=== PATIENT | male | born 1950 | race Caucasian/White ===

== ENCOUNTER 2017-02-05 13:22 | Inpatient (IN) | payer MEDICARE, BC ==
[~2017-02-05] VITALS: Ht 177.8 cm; Wt 84.4 kg
[~2017-02-05 13:22] MED LIST: ASPIRIN EC81 MG PO
[2017-02-05 15:01] LABS: HEMOGLOBIN 17.6 gm/dl (14.0-17.5); RED BLOOD COUNT 5.14 M/UL (4.20-5.50)
[2017-02-05 15:38] LABS: BUN/CREATININE RATIO 18 (0-10)
[2017-02-05] MEDS ORDERED: SYMBICORT 16010.2 GM INH (23:55)
[2017-02-05] MEDS ORDERED: PROAIR HFA8.5 GM INH (23:55)
[2017-02-05] MEDS ORDERED: COMBIVENT0.074 GM/I INH (23:57)
[2017-02-05] MEDS ORDERED: SPIRIVA HANDIH18 MCG INH (23:57)
[2017-02-05] MEDS ORDERED: COUMADIN3 MG PO (23:58)
[2017-02-05] MEDS ORDERED: BAYER CHEWABLE81 MG PO (23:58)
[2017-02-05] MEDS ORDERED: COUMADIN2 MG PO (23:59)
[2017-02-06] MEDS ORDERED: TOPROL XL50 MG PO
[2017-02-06] MEDS ORDERED: JANUVIA100 MG PO (00:01)
[2017-02-06] MEDS ORDERED: NORVASC 5 MG TAB5 MG PO (00:01)
[2017-02-06] MEDS ORDERED: PRAVACHOL80 MG PO (00:02)
[2017-02-06] MEDS ORDERED: SINEQUAN CAP 5050 MG PO (00:02)
[2017-02-06 03:36] LABS: HEMOGLOBIN 15.3 gm/dl (14.0-17.5); RED BLOOD COUNT 4.52 M/UL (4.20-5.50); WHITE BLOOD COUNT 10.2 K/UL (4.5-11.0)
[2017-02-06 04:02] LABS: BUN/CREATININE RATIO 23 (0-10)
[2017-02-08 04:55] LABS: HEMOGLOBIN 14.4 gm/dl (14.0-17.5); RED BLOOD COUNT 4.24 M/UL (4.20-5.50); WHITE BLOOD COUNT 11.1 K/UL (4.5-11.0)
[2017-02-08 05:24] LABS: BUN/CREATININE RATIO 27 (0-10)
[2017-02-09] MEDS ORDERED: IPRAT-ALBUT 0.5-3 ML INH (10:07)
[2017-02-09] MEDS ORDERED: TYLENOL 325MG325 MG PO (10:07)
[2017-02-09] MEDS ORDERED: BACTROBAN OINT22 GM TOP (10:16)
== END 2017-02-09 17:31 | disposition home or self-care (01) | DRG 189 ==
LOC: ER1 13:22 → ZEROF 17:40 → MED SURG 4 17:40
PROVIDERS: Family Medicine; ADMIT Emergency Medicine
DX: J96.01 Acute respiratory failure with hypoxia (principal); J44.1 Chronic obstructive pulmonary disease with (acute) exacerbation; J44.0 Chronic obstructive pulmonary disease with (acute) lower respiratory infection; J20.9 Acute bronchitis, unspecified; I25.10 Atherosclerotic heart disease of native coronary artery without angina pectoris; Z95.5 Presence of coronary angioplasty implant and graft; Z95.2 Presence of prosthetic heart valve; G47.33 Obstructive sleep apnea (adult) (pediatric); D72.829 Elevated white blood cell count, unspecified; I73.9 Peripheral vascular disease, unspecified; E11.9 Type 2 diabetes mellitus without complications; E78.5 Hyperlipidemia, unspecified; I10 Essential (primary) hypertension; Z98.890 Other specified postprocedural states; Z79.899 Other long term (current) drug therapy; Z79.82 Long term (current) use of aspirin; Z79.01 Long term (current) use of anticoagulants; Z88.0 Allergy status to penicillin; Z88.8 Allergy status to other drugs, medicaments and biological substances; Z87.891 Personal history of nicotine dependence; Z82.3 Family history of stroke; Z84.1 Family history of disorders of kidney and ureter; Z82.49 Family history of ischemic heart disease and other diseases of the circulatory system; Z82.5 Family history of asthma and other chronic lower respiratory diseases; D75.1 Secondary polycythemia
CPT/HCPCS: ECHO; 36415; 36600; 71010; 80048; 80053; 82550; 82553; 82803; 82962; 83874; 83880; 84484; 85025; 85027; 85379; 85610; 85730; 87070; 87077; 87186; 87205; 93005; 93306; 94640; 94660; 94664; 96374; 99285; J1650; J2920; J2930

== ENCOUNTER 2017-02-14 14:30 | Inpatient (IN) | payer MEDICARE, BC ==
[~2017-02-14] VITALS: Ht 177.8 cm; Wt 83.9 kg
[~2017-02-14 14:30] MED LIST changes: +BACTROBAN OINT22 GM TOP; +BAYER CHEWABLE81 MG PO; +COMBIVENT0.074 GM/I INH; +COUMADIN2 MG PO; +COUMADIN3 MG PO; +IPRAT-ALBUT 0.5-3 ML INH; +JANUVIA100 MG PO; +NORVASC 5 MG TAB5 MG PO; +PRAVACHOL80 MG PO; +PROAIR HFA8.5 GM INH; +SINEQUAN CAP 5050 MG PO; +SPIRIVA HANDIH18 MCG INH; +SYMBICORT 16010.2 GM INH; +TOPROL XL50 MG PO; +TYLENOL 325MG325 MG PO
[2017-02-14 17:26] LABS: WHITE BLOOD COUNT 13.7 K/UL (4.5-11.0)
[2017-02-14 17:35] LABS: HEMOGLOBIN 16.8 gm/dl (14.0-17.5)
[2017-02-14 17:39] LABS: BUN/CREATININE RATIO 20 (0-10)
[2017-02-15 06:52] LABS: HEMOGLOBIN 16.1 gm/dl (14.0-17.5); RED BLOOD COUNT 4.74 M/UL (4.20-5.50); WHITE BLOOD COUNT 12.9 K/UL (4.5-11.0)
[2017-02-15 07:11] LABS: BUN/CREATININE RATIO 24 (0-10)
[2017-02-16 04:30] LABS: HEMOGLOBIN 15.2 gm/dl (14.0-17.5); RED BLOOD COUNT 4.57 M/UL (4.20-5.50)
[2017-02-16 04:31] LABS: WHITE BLOOD COUNT 24.3 K/UL (4.5-11.0)
[2017-02-16 04:52] LABS: BUN/CREATININE RATIO 27 (0-10)
[2017-02-17 03:32] LABS: HEMOGLOBIN 15.6 gm/dl (14.0-17.5); RED BLOOD COUNT 4.65 M/UL (4.20-5.50); WHITE BLOOD COUNT 22.6 K/UL (4.5-11.0)
[2017-02-17 03:46] LABS: BUN/CREATININE RATIO 27 (0-10)
[2017-02-18 03:41] LABS: HEMOGLOBIN 15.6 gm/dl (14.0-17.5); RED BLOOD COUNT 4.6 M/UL (4.20-5.50)
[2017-02-18 04:01] LABS: BUN/CREATININE RATIO 26 (0-10)
[2017-02-19 03:52] LABS: HEMOGLOBIN 15.7 gm/dl (14.0-17.5); RED BLOOD COUNT 4.67 M/UL (4.20-5.50); WHITE BLOOD COUNT 15.2 K/UL (4.5-11.0)
[2017-02-19 04:15] LABS: BUN/CREATININE RATIO 33 (0-10)
[2017-02-20 04:18] LABS: HEMOGLOBIN 15.4 gm/dl (14.0-17.5); RED BLOOD COUNT 4.59 M/UL (4.20-5.50); WHITE BLOOD COUNT 14.5 K/UL (4.5-11.0)
[2017-02-22 04:28] LABS: BUN/CREATININE RATIO 24 (0-10)
[2017-02-23 05:54] LABS: HEMOGLOBIN 16.8 gm/dl (14.0-17.5); RED BLOOD COUNT 4.98 M/UL (4.20-5.50); WHITE BLOOD COUNT 13.3 K/UL (4.5-11.0)
[2017-02-23 06:12] LABS: BUN/CREATININE RATIO 28 (0-10)
[2017-02-24 06:10] LABS: BUN/CREATININE RATIO 34 (0-10)
[2017-02-25 06:49] LABS: BUN/CREATININE RATIO 35 (0-10)
[2017-02-25 07:26] LABS: WHITE BLOOD COUNT 12.3 K/UL (4.5-11.0)
[2017-02-25 07:27] LABS: HEMOGLOBIN 14.5 gm/dl (14.0-17.5); RED BLOOD COUNT 4.32 M/UL (4.20-5.50)
[2017-02-26 04:51] LABS: HEMOGLOBIN 14.7 gm/dl (14.0-17.5); RED BLOOD COUNT 4.39 M/UL (4.20-5.50); WHITE BLOOD COUNT 11.6 K/UL (4.5-11.0)
[2017-02-26 05:14] LABS: BUN/CREATININE RATIO 26 (0-10)
[2017-02-28 06:23] LABS: BUN/CREATININE RATIO 17 (0-10)
[2017-03-01] MEDS ORDERED: MYCOSTATIN100000 UTS PO (10:56)
[2017-03-01] MEDS ORDERED: PROTONIX 40 MG40 M1 PO (10:59)
[2017-03-01] MEDS ORDERED: LEVAQUIN750 MG PO (11:03)
[2017-03-01] MEDS ORDERED: GENTAMICIN100 MG/100 IV (11:24)
[2017-03-01] MEDS ORDERED: ACCUPRIL10 MG PO (11:29)
[2017-03-01] MEDS ORDERED: CEFUROXIME500 MG PO (11:29)
[2017-03-01] MEDS ORDERED: PREDNISONE10 M1 PO (11:30)
[2017-03-01] MEDS ORDERED: GLUCOPHAGE1000 MG PO (11:30)
[2017-03-01] MEDS ORDERED: COMPAZINE10 MG PO (12:01)
== END 2017-03-01 16:03 | disposition home health service (06) | DRG 189 ==
LOC: M/S 14:30 → CCU 02-16 00:32 → MED SURG 4 02-21 10:58
PROVIDERS: Family Medicine; Internal Medicine; ADMIT Emergency Medicine
PROC: 05HD33Z Insertion of Infusion Device into Right Cephalic Vein, Percutaneous Approach (ICD-10-PCS; principal; 2017-03-01)
PROC: B51M1ZA Fluoroscopy of Right Upper Extremity Veins using Low Osmolar Contrast, Guidance (ICD-10-PCS; principal; 2017-03-01)
DX: J96.21 Acute and chronic respiratory failure with hypoxia (principal); J15.1 Pneumonia due to Pseudomonas; J44.0 Chronic obstructive pulmonary disease with (acute) lower respiratory infection; I47.2 Ventricular tachycardia; J44.1 Chronic obstructive pulmonary disease with (acute) exacerbation; E87.1 Hypo-osmolality and hyponatremia; B37.0 Candidal stomatitis; N17.9 Acute kidney failure, unspecified; I10 Essential (primary) hypertension; E11.65 Type 2 diabetes mellitus with hyperglycemia; E78.5 Hyperlipidemia, unspecified; I48.2 Chronic atrial fibrillation; G47.33 Obstructive sleep apnea (adult) (pediatric); I25.10 Atherosclerotic heart disease of native coronary artery without angina pectoris; I25.2 Old myocardial infarction; I73.9 Peripheral vascular disease, unspecified; Z95.5 Presence of coronary angioplasty implant and graft; Z87.891 Personal history of nicotine dependence; Z95.4 Presence of other heart-valve replacement; Z79.01 Long term (current) use of anticoagulants; Z82.49 Family history of ischemic heart disease and other diseases of the circulatory system; Z82.5 Family history of asthma and other chronic lower respiratory diseases; Z82.3 Family history of stroke; Z84.1 Family history of disorders of kidney and ureter; Z88.0 Allergy status to penicillin; Z88.8 Allergy status to other drugs, medicaments and biological substances; Z79.4 Long term (current) use of insulin; Z79.84 Long term (current) use of oral hypoglycemic drugs; Z79.899 Other long term (current) drug therapy
CPT/HCPCS: ECHO; 36415; 36600; 71010; 71020; 80048; 80053; 80170; 82550; 82553; 82803; 82962; 83735; 83880; 84300; 84484; 85025; 85027; 85610; 87040; 87070; 87077; 87186; 87205; 93005; 93306; 94640; 94660; 94664; 94667; 94668; C9113; J0696; J1335; J1580; J1650; J1940; J1956; J2020; J2060; J2185; J2920; J2930; J3260; J3370; J7040; J7050; J7070; Q9963

== ENCOUNTER → 2017-03-15 | Outpatient (CLI) | payer MEDICARE, BC ==
[~2017-03-15] MED LIST changes: +ACCUPRIL10 MG PO; +ALPRAZOLAM0.5 MG PO; +AYR; +BISCOLAX10 MG PR; +CEFUROXIME500 MG PO; +COMPAZINE10 MG PO; +COUMADIN 1MG TAB1 MG PO; +COUMADIN1 MG PO; +DALIRESP500 MCG PO; +DIFLUCAN100 MG PO; +GENTAMICIN100 MG/100 IV; +GLUCOPHAGE1000 MG PO; +LEVAQUIN750 MG PO; +MERREM I.V. 50500 MG IV; +MIRALAX17 GM PO; +MYCOSTATIN100000 UTS PO; +NOVOLOG 10100 UNITS/ SC; +PAIN RELIEVER325 MG PO; +PERFOROMIS20 MCG/21 HHN; +PREDNISONE10 M1 PO; +PREDNISONE10 MG PO; +PROTONIX 40 MG40 M1 PO; +PULMICORT0.5 MG/2 M INH; +TOPROL XL 25 MG25 MG PO
== END ==
LOC: EXRD 14:31
DX: J44.9 Chronic obstructive pulmonary disease, unspecified (principal); R91.8 Other nonspecific abnormal finding of lung field
CPT/HCPCS: 71020

== ENCOUNTER 2017-03-16 20:29 | Inpatient (IN) | payer MEDICARE, BC ==
[~2017-03-16] VITALS: Ht 188 cm; Wt 83.9 kg
[~2017-03-16 20:29] MED LIST changes: -ALPRAZOLAM0.5 MG PO; -AYR; -BISCOLAX10 MG PR; -COUMADIN 1MG TAB1 MG PO; -COUMADIN1 MG PO; -DALIRESP500 MCG PO; -DIFLUCAN100 MG PO; -MERREM I.V. 50500 MG IV; -MIRALAX17 GM PO; -NOVOLOG 10100 UNITS/ SC; -PAIN RELIEVER325 MG PO; -PERFOROMIS20 MCG/21 HHN; -PREDNISONE10 MG PO; -PULMICORT0.5 MG/2 M INH; -TOPROL XL 25 MG25 MG PO
[2017-03-16 21:54] LABS: HEMOGLOBIN 14.3 gm/dl (14.0-17.5); RED BLOOD COUNT 4.32 M/UL (4.20-5.50); WHITE BLOOD COUNT 7.9 K/UL (4.5-11.0)
[2017-03-17 05:56] LABS: HEMOGLOBIN 12.9 gm/dl (14.0-17.5); RED BLOOD COUNT 3.97 M/UL (4.20-5.50)
[2017-03-17 06:03] LABS: WHITE BLOOD COUNT 3.3 K/UL (4.5-11.0)
--- NOTE | 2017-03-19 16:16 | NUR ---
REPORTED TO DR. DANIELS PATIENT SIX MINUTE WALK ON ROOM AIR PULSE OX SAT 94%. NO S/SX OF RESPIRATORY INSUFFICIENCY NOTED. HE ACKNOWLEDGED
[2017-03-20 06:18] LABS: HEMOGLOBIN 11.9 gm/dl (14.0-17.5); RED BLOOD COUNT 3.67 M/UL (4.20-5.50)
--- NOTE | 2017-03-20 11:09 | NUR ---
RESPIRATORY THERAPIST INFORMED THAT HE PUT PATIENT ON NON REBREATHTER 100% PULSE OX STAYS 83%. PATIENT REPORT OF STRUGGLING TO BREATH. REPORTED TO DR. PEREZ AND RECEIVED ORDER TO TRAMSFER PATIENT TO ICU.
--- NOTE | 2017-03-20 11:42 | NUR ---
NOTIFIED DR. MEDINA
[2017-03-22 03:26] LABS: HEMOGLOBIN 11.2 gm/dl (14.0-17.5); RED BLOOD COUNT 3.49 M/UL (4.20-5.50); WHITE BLOOD COUNT 6.8 K/UL (4.5-11.0)
[2017-03-24 06:12] LABS: HEMOGLOBIN 11.3 gm/dl (14.0-17.5); RED BLOOD COUNT 3.44 M/UL (4.20-5.50); WHITE BLOOD COUNT 7.4 K/UL (4.5-11.0)
[2017-03-25 05:37] LABS: HEMOGLOBIN 11.5 gm/dl (14.0-17.5); RED BLOOD COUNT 3.52 M/UL (4.20-5.50); WHITE BLOOD COUNT 7.4 K/UL (4.5-11.0)
[2017-03-26 05:37] LABS: HEMOGLOBIN 12.3 gm/dl (14.0-17.5); RED BLOOD COUNT 3.74 M/UL (4.20-5.50)
[2017-03-26 05:38] LABS: WHITE BLOOD COUNT 9.3 K/UL (4.5-11.0)
[2017-03-30] MEDS ORDERED: MERREM I.V. 50500 MG IV (10:28)
[2017-03-30] MEDS ORDERED: DIFLUCAN100 MG PO (10:29)
[2017-03-30] MEDS ORDERED: TOPROL XL 25 MG25 MG PO (10:30)
[2017-03-30] MEDS ORDERED: NOVOLOG 10100 UNITS/ SC (10:37)
[2017-03-30] MEDS ORDERED: MYCOSTATIN100000 UTS PO (10:38)
[2017-03-30] MEDS ORDERED: MIRALAX17 GM PO (10:39)
[2017-03-30] MEDS ORDERED: PREDNISONE10 MG PO (10:40)
[2017-03-30] MEDS ORDERED: DALIRESP500 MCG PO (10:42)
[2017-03-30] MEDS ORDERED: AYR (10:44)
[2017-03-30] MEDS ORDERED: COUMADIN2 MG PO (10:45)
[2017-03-30] MEDS ORDERED: COUMADIN1 MG PO (10:46)
[2017-03-30] MEDS ORDERED: PULMICORT0.5 MG/2 M INH (10:48)
[2017-03-30] MEDS ORDERED: COUMADIN 1MG TAB1 MG PO (10:48)
[2017-03-30] MEDS ORDERED: PERFOROMIS20 MCG/21 HHN (10:49)
[2017-03-30] MEDS ORDERED: IPRAT-ALBUT 0.5-3 ML INH (10:51)
[2017-03-30] MEDS ORDERED: PAIN RELIEVER325 MG PO (10:53)
[2017-03-30] MEDS ORDERED: ALPRAZOLAM0.5 MG PO (10:54)
[2017-03-30] MEDS ORDERED: BISCOLAX10 MG PR (10:57)
== END 2017-03-30 13:05 | DRG 166 ==
LOC: ER1 20:29 → CCU 23:47 → ZEROF 23:47 → MED SURG 4 03-17 02:05 → CCU 03-20 11:33 → PROG CARE 03-28 15:35
PROVIDERS: Emergency Medicine; Family Medicine; Internal Medicine; Internal Medicine Pulmonary Disease; ADMIT Emergency Medicine
PROC: 5A09357 Assistance with Respiratory Ventilation, Less than 24 Consecutive Hours, Continuous Positive Airway Pressure (ICD-10-PCS; 2017-03-20)
PROC: 0B9B8ZX Drainage of Left Lower Lobe Bronchus, Via Natural or Artificial Opening Endoscopic, Diagnostic (ICD-10-PCS; 2017-03-23)
PROC: 0B918ZX Drainage of Trachea, Via Natural or Artificial Opening Endoscopic, Diagnostic (ICD-10-PCS; 2017-03-23)
PROC: 0B9F8ZX Drainage of Right Lower Lung Lobe, Via Natural or Artificial Opening Endoscopic, Diagnostic (ICD-10-PCS; principal; 2017-03-23 09:59)
DX: J96.21 Acute and chronic respiratory failure with hypoxia (principal); J15.5 Pneumonia due to Escherichia coli; B37.1 Pulmonary candidiasis; J44.0 Chronic obstructive pulmonary disease with (acute) lower respiratory infection; J44.1 Chronic obstructive pulmonary disease with (acute) exacerbation; N17.9 Acute kidney failure, unspecified; I25.10 Atherosclerotic heart disease of native coronary artery without angina pectoris; Z95.5 Presence of coronary angioplasty implant and graft; Z95.2 Presence of prosthetic heart valve; E11.65 Type 2 diabetes mellitus with hyperglycemia; Z99.81 Dependence on supplemental oxygen; I10 Essential (primary) hypertension; E78.5 Hyperlipidemia, unspecified; G47.33 Obstructive sleep apnea (adult) (pediatric); I73.9 Peripheral vascular disease, unspecified; Z87.01 Personal history of pneumonia (recurrent); Z88.0 Allergy status to penicillin; Z88.8 Allergy status to other drugs, medicaments and biological substances; Z79.899 Other long term (current) drug therapy; Z79.01 Long term (current) use of anticoagulants; Z79.82 Long term (current) use of aspirin; Z82.49 Family history of ischemic heart disease and other diseases of the circulatory system; Z84.1 Family history of disorders of kidney and ureter; F41.9 Anxiety disorder, unspecified; Z87.891 Personal history of nicotine dependence; Z98.890 Other specified postprocedural states; E87.6 Hypokalemia; D72.819 Decreased white blood cell count, unspecified; I95.9 Hypotension, unspecified; Z79.84 Long term (current) use of oral hypoglycemic drugs
CPT/HCPCS: 36415; 36600; 71010; 71020; 71250; 78315; 80048; 80053; 80061; 80170; 80202; 81001; 82043; 82550; 82553; 82570; 82803; 82962; 83605; 83704; 83735; 83874; 83880; 84132; 84484; 85025; 85027; 85610; 85730; 86900; 86901; 86927; 87015; 87070; 87077; 87102; 87116; 87186; 87205; 89050; 93005; 94640; 94660; 94664; 94667; 94668; 96374; 97110; 97116; 99285; A9503; J1580; J1644; J1956; J2020; J2185; J3370; J7030; J7040; J7050; J7070; P9017